=== PATIENT | male | born 1945 | race Caucasian/White ===

== ENCOUNTER → 2016-10-27 | Outpatient (CLI) | payer MEDICARE, OTHER ==
[~2016-10-27] MED LIST: ALBU8.5H5 IH; APRACLONIDINE 1% 0.1 ML OPH ONE; BACTDS PO; CLIN-73 PO; DOCU-144 PO; FLUT12HF IH; HYDR4TAB18 PO; IBUP-1542 PO; OPHTHALMIC IRRIG SOLUTION 120 ML ONE; PHENYLephrine 10% 5 ML OPH ONE; PROPARACAINE 0.5% 15 ML OPH ONE; TROPICAMIDE 1% 3 ML OPH ONE
== END | disposition home or self-care (01) ==
LOC: RAD 09:42
PROVIDERS: ATTEND Ophthalmology
DX: Q12.0 Congenital cataract (principal)
CPT/HCPCS: 66821

== ENCOUNTER → 2016-11-01 | Outpatient (CLI) | payer MEDICARE, OTHER ==
[~2016-11-01] MED LIST changes: -APRACLONIDINE 1% 0.1 ML OPH ONE; -OPHTHALMIC IRRIG SOLUTION 120 ML ONE; -PHENYLephrine 10% 5 ML OPH ONE; -PROPARACAINE 0.5% 15 ML OPH ONE; -TROPICAMIDE 1% 3 ML OPH ONE
--- NOTE | 2016-11-02 09:07 | RADRPT ---
PROCEDURE: Chest Radiograph. CLINICAL INDICATION: Cough. Pneumonia. TECHNIQUE: Single frontal chest radiograph. COMPARISON: Chest radiograph 04/12/2015 FINDINGS: The heart is magnified. Atherosclerotic calcifications are present. The lungs are moderately hyper inflated. There is extensive interstitial coarsening, likely related to chronic lung changes. No co nfluent or lobar infiltrate is seen. No pleural effusion is definitively identified. They are ag e indeterminate though chronic-appearing fractures of the left fourth through sixth posterior ribs a nd 8th right posterior. IMPRESSION: 1. Pulmonary hyperinflation and chronic lung changes, correlate with COPD. No definitive superimpo sed infiltrate. 2. Atherosclerotic vascular disease. 3. Age indeterminate bilateral rib fractures, likely chronic. RPTAT: KK .Christiano Paniagua MD, Date Time Electronically viewed and signed by .Christiano Paniagua MD, on 11/02/2016 09:07 .B/
== END | disposition home or self-care (01) ==
LOC: RAD 15:51
DX: J18.9 Pneumonia, unspecified organism (principal); R05 Cough; J44.9 Chronic obstructive pulmonary disease, unspecified; I70.90 Unspecified atherosclerosis; S22.32XG Fracture of one rib, left side, subsequent encounter for fracture with delayed healing; S22.31XG Fracture of one rib, right side, subsequent encounter for fracture with delayed healing
CPT/HCPCS: 71010

== ENCOUNTER 2017-08-29 15:42 | Emergency (ER) | END 2017-08-29 18:54 | disposition home or self-care (01) ==

== ENCOUNTER 2017-08-30 14:58 | Emergency (ER) | END 2017-08-31 09:38 | disposition left against medical advice (07) ==

== ENCOUNTER 2017-08-31 14:42 | Emergency (ER) | END 2017-08-31 23:14 | disposition home or self-care (01) ==

== ENCOUNTER 2017-12-10 22:00 | Inpatient (IN) | END 2017-12-12 14:50 | disposition home or self-care (01) | DRG 603 ==

== ENCOUNTER 2018-02-02 19:13 | Emergency (ER) | END 2018-02-02 21:21 | disposition home or self-care (01) ==

== ENCOUNTER 2019-01-01 11:41 | Emergency (ER) | payer MEDICARE, OTHER ==
[~2019-01-01] VITALS: Ht 165.1 cm; Wt 59.5 kg
[~2019-01-01 11:41] MED LIST changes: +ALBU18HF INHALATION; -ALBU8.5H5 IH; -BACTDS PO; +CEPH-443 PO; -CLIN-73 PO; -DOCU-144 PO; +DOCU-159 PO; -FLUT12HF IH; +GABA300C16 PO; -HYDR4TAB18 PO; -IBUP-1542 PO; +METH10TA2 PO; +SULF1TAB31 PO
[2019-01-01 11:43] VITALS: Ht 165.1 cm; Wt 59.5 kg
[2019-01-01] MEDS ORDERED: SULF1TAB31 PO (12:42)
[2019-01-01] MEDS ORDERED: CEPH-443 PO (12:42)
[2019-01-01 13:35] VITALS: BP 123/74; PULSE 90; RESP 18
--- NOTE | 2019-01-01 15:10 | ERD ---
ER Documentation Chief Complaint Chief Complaint ABSCESS @ [facility] HPI 73-year-old male presenting with abscess to his right arm. Patient states he is a heroin user and used earlier today. He is skin popping and he developed an abscess a few days ago. Denies any fevers. Has not taken any medications. Denies other medical problems. Allergy to codeine and Tylenol. Surgical history denies. Social history uses heroin. ROS All systems reviewed and are negative except as per history of present illness. Medications Home Meds Active Scripts Sulfamethoxazole/Trimethoprim* (Bactrim Ds* Tablet) 1 Each Tablet, 1 TAB PO BID, #14 TAB Prov:TETO RUIZ PA-C 01/01/19 Cephalexin* (Keflex*) 500 Mg Capsule, 500 MG PO QID for 7 Days, CAP Prov:TETO RUIZ PA-C 01/01/19 Cephalexin* (Keflex*) 500 Mg Capsule, 500 MG PO QID for 7 Days, CAP Prov:CAROLIN COLES MD 09/27/18 Sulfamethoxazole/Trimethoprim* (Bactrim Ds* Tablet) 1 Each Tablet, 1 TAB PO BID, #14 TAB Prov:CAROLIN COLES MD 09/27/18 Albuterol Sulfate* (Ventolin HFA*) 18 Gm Hfa.aer.ad, 2 PUFF INHALATION Q4H, #1 INHALER Prov:CAROLIN COLES MD 08/31/17 Reported Medications Methadone Hcl* (Methadone*) 10 Mg Tab, 60 MG PO DAILY, TAB PER PT GETS RX FROM [facility] 09/27/18 Docusate Sodium* (Docusate Sodium*) 100 Mg Capsule, 100 MG PO BID, #60 CAP 08/31/17 Gabapentin* (Gabapentin*) 300 Mg Capsule, 300 MG PO TID, #90 CAP 08/31/17 Allergies Allergies: Coded Allergies: acetaminophen (Unverified Adverse Reaction, Mild, N/V, 02/02/18) codeine (Verified Adverse Reaction, Mild, N/V, 02/02/18) PMhx/Soc History of Surgery: Yes (DENTAL SURGERY) Anesthesia Reaction: No Hx Neurological Disorder: No Hx Respiratory Disorders: No Hx Cardiac Disorders: No Hx Psychiatric Problems: No Hx Miscellaneous Medical Probl: Yes (LBP, SCIATICA, COPD, HEPATITIS C,DRUG ABUSE) Hx Alcohol Use: No Hx Substance Use: Yes (HEROIN) Hx Tobacco Use: Yes (1 pack/daily) Smoking Status: Current every day smoker FmHx Family History: No diabetes, No coronary disease, No other Physical Exam Vitals Vital Signs Date Temp Pulse Resp B/P (MAP) Pulse Ox O2 O2 Flow FiO2 Time Delivery Rate 01/01/19 98.1 90 18 123/74 97 Room Air 13:35 (90) 01/01/19 97.8 99 18 119/73 97 11:43 (88) Physical Exam GENERAL: The patient is well-appearing, well-nourished, in no acute distress HEENT: Atraumatic. Conjunctivae are pink. Pupils equal, round, and reactive to light. There is no scleral icterus. Tympanic membranes clear bilaterally. Oropharynx clear. CHEST: Clear to auscultation bilaterally. There are no rales, wheezes or rhonchi. HEART: Regular rate and rhythm. No murmurs, clicks, rubs or gallops. No S3 or S4. SKIN: Erythema noted to the right arm. No lymphatic streaking. No fluctuance only indurated. Approximately 2 cm x 2 cm. Procedures/MDM MDM: 73-year-old male presenting with abscess to right arm. I have low suspicion for lymphatic infection. There is no indication for incision and drainage at this time. Patient is discharged with antibiotics and told to return in 2 days. I recommended patient use warm compresses to the site and re turn. Patient is told symptoms change or worsen to return sooner. Patient is discharged with strict ER precautions. All questions answered at discharge Departure Diagnosis: Primary Impression: Abscess and cellulitis Condition: Stable Patient Instructions: Cellulitis Referrals: JLUIS KAUFMAN MD (PCP) Additional Instructions: FOLLOW UP WITH YOUR PRIMARY CARE PHYSICIAN TOMORROW.Return to this facility if you are not improving as expected. TETO RUIZ PA-C January 01, 2019 15:10
== END 2019-01-01 13:25 | disposition home or self-care (01) ==
LOC: FTE 11:41
DX: L02.413 Cutaneous abscess of right upper limb (principal); F17.210 Nicotine dependence, cigarettes, uncomplicated; J44.9 Chronic obstructive pulmonary disease, unspecified; L03.114 Cellulitis of left upper limb
CPT/HCPCS: 99283

== ENCOUNTER 2019-01-20 12:03 | Emergency (ER) | payer MEDICARE, OTHER ==
[~2019-01-20] VITALS: Ht 175.3 cm; Wt 60.7 kg
[2019-01-20 12:09] VITALS: BP 152/78; PULSE 81; RESP 18; Ht 175.3 cm; Wt 60.7 kg
[2019-01-20] MEDS ORDERED: ACET-141 PO (15:06)
--- NOTE | 2019-01-20 15:08 | ERD ---
ER Documentation Chief Complaint Chief Complaint rt foot middle toe injury , hit on refrigerator x 2 days ago ROS All systems reviewed and are negative except as per history of present illness. Medications Home Meds Active Scripts Acetaminophen* (Acetaminophen*) 500 MG Extra Strength Tablet, 500 MG PO Q4H PRN for PAIN AND OR ELEVATED TEMP, #30 TAB Prov:TONY DICKERSON DO 01/20/19 Sulfamethoxazole/Trimethoprim* (Bactrim Ds* Tablet) 1 Each Tablet, 1 TAB PO BID, #14 TAB Prov:TETO RUIZ PA-C 01/01/19 Cephalexin* (Keflex*) 500 Mg Capsule, 500 MG PO QID for 7 Days, CAP Prov:TETO RUIZ PA-C 01/01/19 Cephalexin* (Keflex*) 500 Mg Capsule, 500 MG PO QID for 7 Days, CAP Prov:CAROLIN COLES MD 09/27/18 Sulfamethoxazole/Trimethoprim* (Bactrim Ds* Tablet) 1 Each Tablet, 1 TAB PO BID, #14 TAB Prov:CAROLIN COLES MD 09/27/18 Albuterol Sulfate* (Ventolin HFA*) 18 Gm Hfa.aer.ad, 2 PUFF INHALATION Q4H, #1 INHALER Prov:CAROLIN COLES MD 08/31/17 Reported Medications Methadone Hcl* (Methadone*) 10 Mg Tab, 60 MG PO DAILY, TAB PER PT GETS RX FROM [facility] 09/27/18 Docusate Sodium* (Docusate Sodium*) 100 Mg Capsule, 100 MG PO BID, #60 CAP 08/31/17 Gabapentin* (Gabapentin*) 300 Mg Capsule, 300 MG PO TID, #90 CAP 08/31/17 Allergies Allergies: Coded Allergies: acetaminophen (Unverified Adverse Reaction, Mild, N/V, 02/02/18) codeine (Verified Adverse Reaction, Mild, N/V, 02/02/18) PMhx/Soc History of Surgery: Yes (DENTAL SURGERY) Anesthesia Reaction: No Hx Neurological Disorder: No Hx Respiratory Disorders: No Hx Cardiac Disorders: No Hx Psychiatric Problems: No Hx Miscellaneous Medical Probl: Yes (LBP, SCIATICA, COPD, HEPATITIS C,DRUG ABUSE) Hx Alcohol Use: No Hx Substance Use: Yes (HEROIN) Hx Tobacco Use: Yes (1 pack/daily) Smoking Status: Current every day smoker Physical Exam Vitals Vital Signs Date Temp Pulse Resp B/P (MAP) Pulse Ox O2 O2 Flow FiO2 Time Delivery Rate 01/20/19 98.1 81 18 152/78 97 12:09 (102) Physical Exam Const: No acute distress Head: Atraumatic Eyes: Normal Conjunctiva ENT: Normal External Ears, Nose and Mouth. Neck: Full range of motion. No meningismus. Resp: Clear to auscultation bilaterally Cardio: Regular rate and rhythm, no murmurs Abd: Soft, non tender, non distended. Normal bowel sounds Skin: No petechiae or rashes Back: No midline or flank tenderness Ext: No cyanosis, or edema Neur: Awake and alert Psych: Normal Mood and Affect Departure Diagnosis: Primary Impression: Toe fracture Encounter type: initial encounter Toe: unspecified toe Fracture type: closed Fracture alignment: nondisplaced Laterality: right Qualified Codes: S92.911A - Unspecified fracture of right toe(s), initial encounter for closed fracture Condition: Fair Patient Instructions: Finger and Toe Fractures (Broken Finger or Toe) Referrals: [facility] 7 a.m.- 11 p.m. Every Day of the Week NO APPOINTMENT OR AUTHORIZATION NEEDED Additional Instructions: Call your primary care doctor TOMORROW for an appointment during the next 1-2 days.See the doctor sooner or return here if your condition worsens before your appointment time. Follow up with orthopedic surgery TONY DICKERSON DO January 20, 2019 15:08
== END 2019-01-20 15:45 | disposition left against medical advice (07) ==
LOC: FTE 12:03
DX: S92.501A Displaced unspecified fracture of right lesser toe(s), initial encounter for closed fracture (principal); F17.210 Nicotine dependence, cigarettes, uncomplicated; J44.9 Chronic obstructive pulmonary disease, unspecified; W22.8XXA Striking against or struck by other objects, initial encounter; Y92.9 Unspecified place or not applicable
CPT/HCPCS: 73630